=== PATIENT | female | born 1945 | race Two or more races ===

== ENCOUNTER 2022-11-22 07:45 | Inpatient (IN) | payer OTHER ==
[~2022-11-22] VITALS: Ht 149.9 cm; Wt 64.4 kg
[2022-11-22] MEDS ORDERED: METOP PO (09:48)
[2022-11-22] MEDS ORDERED: ATORVAST PO (09:48)
[2022-11-26] MEDS ORDERED: HYDROCHLOROTHIA25 MG (08:01)
[2022-11-26] MEDS ORDERED: LOSARTAN POTASS50 MG (08:01)
[2022-11-26] MEDS ORDERED: METOPROLOL SUC100 MG (08:01)
[2022-11-26] MEDS ORDERED: ATORVASTATIN CA20 MG (08:01)
[2022-11-26] MEDS ORDERED: DICLOFENAC SODI50 MG (08:01)
[2022-11-26] MEDS ORDERED: LANSOPRAZOLE30 MG (08:01)
[2022-11-28] MEDS ORDERED: XARELTO10 MG PO (06:29)
[2022-11-28] MEDS ORDERED: BACTRIM DS TAB1 EACH PO (06:29)
[2022-11-28] MEDS ORDERED: OXYC1TAB9 PO (06:29)
[2022-11-28] MEDS ORDERED: INTEGRA PLUS C1 EACH PO (06:29)
== END 2022-11-28 13:07 | DRG 470 ==
LOC: ADM 07:45 → O/R 11-26 05:22 → EDSTATUS 11-26 07:45 → SURH 11-26 07:45 → CIR.AMB 11-26 07:45 → SURG 11-26 12:34 → SURH 11-26 13:30 → SURG 11-28 13:07
PROVIDERS: ADMIT Orthopaedic Surgery Sports Medicine; ATTEND Orthopaedic Surgery Sports Medicine
PROC: 0SRD0J9 Replacement of Left Knee Joint with Synthetic Substitute, Cemented, Open Approach (ICD-10-PCS; principal; 2022-11-26 13:30)
DX: M17.12 Unilateral primary osteoarthritis, left knee (principal); I10 Essential (primary) hypertension; Z20.822 Contact with and (suspected) exposure to COVID-19